=== PATIENT | male | born 1965 | race Caucasian/White ===

== ENCOUNTER 2022-03-03 10:28 | Emergency (ER) | payer SELFPAY ==
[2022-03-03 11:17] LABS: Absolute Lymphocytes (CBC) 1.2 K/uL (0.7-4.9); Hematocrit 45.9 % (39.6-49.0); Lymphocytes % 13.3 % (15.3-44.8); MPV 7.2 fL (7.6-11.3); RBC Red Blood Cell Count 5.04 M/uL (4.33-5.43)
[2022-03-03 11:20] LABS: Protime INR 1.06
[2022-03-03 11:36] LABS: Albumin 3.9 g/dL (3.4-5.0); Bilirubin Direct 0.2 mg/dL (0-0.2); Bilirubin Total 0.7 mg/dL (0.2-1.0); Potassium 3.6 mmol/L (3.5-5.1); Protein, Total 7.2 g/dL (6.4-8.2)
--- NOTE | 2022-03-03 12:37 | RAD REPORT ---
EXAM DESCRIPTION: CT - Chest For Pe Angio - 03/03/2022 12:05 pm CLINICAL HISTORY: hemoptysis COMPARISON: No comparisonsNo comparisons TECHNIQUE: Dynamically enhanced 3 mm thick images of the chest were obtained during administration o f approximately 150mL Isovue 370 IV contrast. Coronal and oblique MIP reconstruction images were gene rated and reviewed. Exam utilizes a protocol to evaluate the pulmonary arterial tree. All CT scans are performed using dose optimization technique as appropriate and may include automated exposure control or mA/KV adjustment according to patient size. FINDINGS: No pulmonary emboli are identified. There is some slight heterogeneity right upper lobe pu lmonary arteries due to the affects of dense concentration of contrast in the SVC and azygos vein. The aorta as imaged shows no acute or suspicious finding. No pericardial thickening or effusion. Focal airspace opacification with air bronchogram formation seen in the anterior midportion of the ri ght upper lobe. This is most likely right upper lobe pneumonia. Pulmonary hemorrhage related to embol ic disease is not suspected. There is a small amount of mucus or inflammatory debris in the right adrian nstem bronchus. A mass lesion of the bronchus is not seen. Malignant mass of the chest is not identif ied. A few small reactive type hilar lymph nodes are seen. Minimal ground-glass opacities are present in the right middle and right lower lobes probably atelect asis rather than additional infiltrate. Left lung field is clear of any significant finding. No pleural effusion or pleural thickening. No suspicious mediastinal mass. No chest wall masses or abnormal axillary lymphadenopathy. IMPRESSION: No pulmonary emboli confirmed on this study. Small to moderate size right upper lobe pneumonia findings are evident. Underlying mass lesion is not seen. The right upper lobe opacification is not believed to be due to PE related pulmonary hemorrhage. No other significant or suspicious findings.
[2022-03-03] MEDS ORDERED: Levofloxacin 750mg IV 750 MG/150 ML BAG IV ONE (13:01)
--- NOTE | 2022-03-03 14:29 | ER ---
Nurse's Notes [facility] Name: Isreal Hammer Age: 56 yrs Sex: Male : 1965 Arrival Date: 03/03/2022 Time: 10:31 Bed 7 Private MD: Diagnosis: Community Acquired Pneumonia Presentation: 03/03 10:34 Chief complaint: Patient states: Coughing up blood x 2 -3 days, describes as bright red ph in color, denies fever, weakness, chest pain or SOB. Ebola Screen: No symptoms or risks identified at this time. Initial Sepsis Screen: Does the patient meet any 2 criteria? No. Patient's initial sepsis screen is negative. Does the patient have a suspected source of infection? Yes: Productive cough/pneumonia. Risk Assessment: Do you want to hurt yourself or someone else? Patient reports no desire to harm self or others. Onset of symptoms was March 03, 2022. 10:34 Method Of Arrival: Ambulatory ph 10:34 Coronavirus screen: At this time, the client does not indicate any symptoms associated aa5 with coronavirus-19. 10:34 Acuity: BO 3 aa5 10:38 Acuity: BO 3 ph Historical: - Allergies: 10:38 No Known Allergies; aa5 - Home Meds: 10:38 None [Active]; aa5 - PMHx: 10:38 None; aa5 - PSHx: 10:38 None; aa5 - Immunization history:: Adult Immunizations unknown. - Social history:: Smoking status: Patient/guardian denies using tobacco, the patient reports quitting approximately 12 years ago. Screenin:38 [facility] ED Fall Risk Assessment (Adult) History of falling in the last 3 months, ph including since admission No falls in past 3 months (0 pts) Confusion or Disorientation No (0 pts) Intoxicated or Sedated No (0 pts) Impaired Gait No (0 pts) Mobility Assist Device Used No (0 pt) Altered Elimination No (0 pt) Score/Fall Risk Level 0 - 2 = Low Risk Maintained a safe environment. Abuse screen: Denies threats or abuse. Denies injuries from another. Nutritional screening: No deficits noted. Tuberculosis screening: No symptoms or risk factors identified. Assessment: 11:32 General: Appears in no apparent distress. comfortable, well groomed, Behavior is calm, ph cooperative, appropriate for age, Denies fever, feeling ill. Pain: Denies pain. Neuro: Level of Consciousness is awake, alert, obeys commands, Oriented to person, place, time, situation. Cardiovascular: Denies chest pain, fatigue, nausea, shortness of breath, Capillary refill < 3 seconds in bilateral fingers Patient's skin is warm and dry. Rhythm is sinus rhythm. Respiratory: Reports cough that is productive, w/ bright red blood present Airway is patent Respiratory effort is even, unlabored, Respiratory pattern is regular, symmetrical. GI: Patient currently denies abdominal pain, bloody stool, nausea, vomiting. Derm: Skin is healthy with good turgor, Skin is pink, warm \T\ dry. Musculoskeletal: Circulation, motion, and sensation intact. Range of motion: intact in all extremities. 12:28 Reassessment: Patient appears in no apparent distress at this time. Patient and/or ph family updated on plan of care and expected duration. Pain level reassessed. Patient is alert, oriented x 3, equal unlabored respirations, skin warm/dry/pink. 13:09 Reassessment: Patient appears in no apparent distress at this time. Patient and/or ph family updated on plan of care and expected duration. Pain level reassessed. Patient is alert, oriented x 3, equal unlabored respirations, skin warm/dry/pink. Vital Signs: 10:34 BP 157 / 128; Pulse 107; Resp 20; Temp 97.7; Pulse Ox 96% on R/A; Weight 74.84 kg; ph Height 5 ft. 10 in. (177.80 cm); 11:34 BP 117 / 84; Pulse 88; Resp 18; Pulse Ox 98% on R/A; ph 13:09 BP 122 / 78; Pulse 84; Resp 18; Pulse Ox 97% on R/A; ph 14:51 BP 118 / 78; Pulse 87; Resp 18; Temp 97.7; Pulse Ox 98% on R/A; ph 10:34 Body Mass Index 23.67 (74.84 kg, 177.80 cm) ph ED Course: 10:31 Patient arrived in ED. as 10:32 Lester Lazar PA is PHCP. [facility] 10:32 Bright Calderón MD is Attending Physician. [facility] 10:32 Arm band placed on Patient placed in an exam room, on a stretcher. aa5 10:34 Radha Lewis, RN is Primary Nurse. ph 10:38 Triage completed. ph 10:39 Patient has correct armband on for positive identification. Bed in low position. Call ph light in reach. Side rails up X 1. Client placed on continuous cardiac and pulse oximetry monitoring. NIBP monitoring applied. 11:31 Initial lab(s) drawn, by me, sent to lab. EKG done, by ED staff, reviewed by Lester GALLO. Inserted saline lock: 20 gauge in right antecubital area, using aseptic technique. Blood collected. 12:06 CT Chest For PE Angio In Process Unspecified. EDMS 14:28 Farooq Fonseca MD is Referral Physician. chrissie 14:50 No provider procedures requiring assistance completed. IV discontinued, intact, ph bleeding controlled, No redness/swelling at site. Pressure dressing applied. Administered Medications: 13:08 Drug: LevaQUIN (levofloxacin) 750 mg Volume: 150 ml; Route: IVPB; Infused Over: 90 ph mins; Site: right antecubital; 14:49 Follow up: Response: No adverse reaction; IV Status: Completed infusion; IV Intake: ph 150ml Medication: 10:39 VIS not applicable for this client. ph Intake: 14:49 IV: 150ml; Total: 150ml. ph Outcome: 14:29 Discharge ordered by MD. [facility] 14:51 Discharged to home ambulatory. ph 14:51 Condition: good 14:51 Discharge instructions given to patient, Instructed on discharge instructions, follow up and referral plans. Demonstrated understanding of instructions, follow-up care, medications, Prescriptions given X 1. 14:52 Patient left the ED. mm9 Signatures: Dispatcher [employer] EDMS Lester Lazar PA PA jmm Martinez, Amelia as Calderon, Audri RN RN Radha Katz, KASSANDRA RN Joshua [place] [id number] Carine Garrido mm9 Corrections: (The following items were deleted from the chart) 10:38 10:34 BP 157 / 128; Pulse 107bpm; Resp 20bpm; Pulse Ox 96% RA; 74.84 kg; Height 5 ft. ph 10 in.; BMI: 23.6; ph 11:21 11:15 Radiology exam delayed due to lab results not completed at this time. IV eh4 insertion attempt and/or patient not having appropriate IV at this time. eh4
--- NOTE | 2022-03-03 14:29 | EDPHYS ---
Physician Documentation [facility] Name: Isreal Hammer Age: 56 yrs Sex: Male : 1965 Arrival Date: 03/03/2022 Time: 10:31 Bed 7 Private MD: ED Physician Bright Calderón HPI: 03/03 10:58 This 56 yrs old Male presents to ER via Ambulatory with complaints of Cough - blood. [facility] 10:58 Onset: The symptoms/episode began/occurred gradually, 3 day(s) ago. jmm 10:58 This is a 56 year old male with no chronic medical conditions that presents to the ED jmm with complaints of hemoptysis beginning 2 to 3 days ago. Patient denies fever, sob, chest pain. Denies similar episodes in the past. . Historical: - Allergies: 10:38 No Known Allergies; aa5 - Home Meds: 10:38 None [Active]; aa5 - PMHx: 10:38 None; aa5 - PSHx: 10:38 None; aa5 - Immunization history:: Adult Immunizations unknown. - Social history:: Smoking status: Patient/guardian denies using tobacco, the patient reports quitting approximately 12 years ago. ROS: 10:58 Constitutional: Negative for fever, chills, and weight loss, Cardiovascular: Negative jm for chest pain, palpitations, and edema. 10:58 Respiratory: Positive for hemoptysis. 10:58 All other systems are negative. Exam: 10:58 Constitutional: This is a well developed, well nourished patient who is awake, alert, jmm and in no acute distress. Head/Face: atraumatic. Eyes: EOMI, no conjunctival erythema appreciated ENT: Moist Mucus Membranes Neck: Trachea midline, Supple Chest/axilla: Normal chest wall appearance and motion. Cardiovascular: Regular rate and rhythm. No edema appreciated Respiratory: Normal respirations, no respiratory distress appreciated Abdomen/GI: Non distended Back: Normal ROM Skin: General appearance color normal MS/ Extremity: Moves all extremities, no obvious deformities appreciated, no edema noted to the lower extremities Neuro: Awake and alert Psych: Behavior is normal, Mood is normal, Patient is cooperative and pleasant Vital Signs: 10:34 BP 157 / 128; Pulse 107; Resp 20; Temp 97.7; Pulse Ox 96% on R/A; Weight 74.84 kg; ph Height 5 ft. 10 in. (177.80 cm); 11:34 BP 117 / 84; Pulse 88; Resp 18; Pulse Ox 98% on R/A; ph 13:09 BP 122 / 78; Pulse 84; Resp 18; Pulse Ox 97% on R/A; ph 14:51 BP 118 / 78; Pulse 87; Resp 18; Temp 97.7; Pulse Ox 98% on R/A; ph 10:34 Body Mass Index 23.67 (74.84 kg, 177.80 cm) ph MDM: 10:46 Patient medically screened. [facility] 14:26 Data reviewed: vital signs, nurses notes. Counseling: I had a detailed discussion with abhinav the patient and/or guardian regarding: the historical points, exam findings, and any diagnostic results supporting the discharge/admit diagnosis, lab results, radiology results, the need for outpatient follow up, to return to the emergency department if symptoms worsen or persist or if there are any questions or concerns that arise at home. ED course: CT reveals pneumia. I did recommend follow up with pulmonology due to hemoptysis. patient advised to follow u with pcp and otherwise given strict return precautions. patient understood and agrees with the plan of care. . 03/03 10:47 Order name: Basic Metabolic Panel; Complete Time: 11:38 [facility] 03/03 10:47 Order name: CBC with Diff; Complete Time: 11: [facility] 03/03 10:47 Order name: LFT's; Complete Time: 11:38 [facility] 03/03 10:47 Order name: Magnesium; Complete Time: 11:38 [facility] 03/03 10:47 Order name: NT PRO-BNP; Complete Time: 11:38 [facility] 03/03 10:47 Order name: PT-INR; Complete Time: 11:21 [facility] 03/03 10:47 Order name: Troponin HS; Complete Time: 11:38 [facility] 03/03 10:47 Order name: EKG; Complete Time: 10:48 [facility] 03/03 10:47 Order name: Cardiac monitoring; Complete Time: 11:31 [facility] 03/03 10:47 Order name: EKG - Nurse/Tech; Complete Time: 11:31 [facility] 03/03 10:47 Order name: IV Saline Lock; Complete Time: 11:31 [facility] 03/03 10:47 Order name: Labs collected and sent; Complete Time: [facility] 03/03 10:47 Order name: CT Chest For PE Angio; Complete Time: 12:38 [facility] 03/03 10:47 Order name: O2 Per Protocol; Complete Time: [facility] 03/03 10:47 Order name: O2 Sat Monitoring; Complete Time: : [facility] Administered Medications: 13:08 Drug: LevaQUIN (levofloxacin) 750 mg Volume: 150 ml; Route: IVPB; Infused Over: 90 ph mins; Site: right antecubital; 14:49 Follow up: Response: No adverse reaction; IV Status: Completed infusion; IV Intake: ph 150ml Disposition Summary: 03/03/22 14:29 Discharge Ordered Location: Home [facility] Condition: Stable [facility] Diagnosis - Community Acquired Pneumonia [facility] Followup: [facility] - With: Farooq Fonseca MD - When: 2 - 3 days - Reason: Recheck today's complaints, Continuance of care, Re-evaluation by your physician Discharge Instructions: - Discharge Summary Sheet [facility] - Hemoptysis [facility] - Community-Acquired Pneumonia, Adult [facility] Forms: - Medication Reconciliation Form [facility] - Thank You Letter [facility] - Antibiotic Education [facility] - Prescription Opioid Use [facility] Prescriptions: - levofloxacin 750 mg Oral Tablet - take 1 tablet by ORAL route once daily 9 days; 9 tablet; Refills: 0, Product [facility] Selection Permitted Signatures: Dispatcher [employer] Lester Solares PA PA jmm Calderon, Audri, RN RN aa5 Radha Lewis RN RN ph
[2022-03-03 15:01] VITALS: TEMP 97.7
[2022-03-03 15:17] VITALS: BP 118/78; O2SAT 98
--- NOTE | 2022-03-05 15:19 | EKG ---
Test Date: 2022-03-03 Test Time: 11:27:29 [employer]er Worker: PH MEASUREMENT RESULTS: Intervals: Rate: 82 AL: 132 QRSD: 94 QT: 332 QTc: 387 [place]: P: 50 AL: 132 QRS: 58 T: 36 INTERPRETIVE STATEMENTS: Normal sinus rhythm Normal ECG No previous ECG available for comparison Electronically Signed On 03-05-22 15:16:40 ONLINE TUTOR by Clayton Pinto
== END 2022-03-03 14:52 | disposition home or self-care (01) ==
LOC: ER 10:28
DX: J18.9 Pneumonia, unspecified organism (principal)
CPT/HCPCS: 36415; 71275; 80048; 80076; 83735; 83880; 84484; 85025; 85610; 93005; 96365; 96366; 99284; Q9967